=== PATIENT | male | born 1945 | race Caucasian/White ===

== ENCOUNTER → 2020-11-06 | Outpatient (CLI) | payer OTHER ==
[~2020-11-06] MED LIST: AMLODIPINE BESY10 MG PO; ASPIRIN 325MG325 MG PO; ATORVASTATIN CA20 MG PO; CIPRO250 MG PO; DUREZOL5 ML OP; IMDUR ER TAB 3030 MG PO; ISOSORBIDE MONO60 MG PO; LEVOFLOXACIN500 MG PO; LIPITOR TAB 2020 MG PO; MEDROL4 MG PO; METOPROLOL SUCC25 MG PO; NEURONTIN 400400 MG PO; NEXIUM20 MG PO; NITROGLYCERIN0.4 MG SL; NORCO 5-325 TA1 EACH PO; PREDNISOLONE ACE5 ML OP; PREDNISONE 50 M50 MG PO; PRINIVIL10 MG PO; PROAIR HFA8.5 GM INH; SYMBICORT 16010.2 GM INH; TYLENOL 500 MG500 MG PO; VENTOLIN HFA 66.7 GM INH; Voltaren Gel 1 % TOP
== END ==
LOC: KOH-I 10:35
DX: M25.511 Pain in right shoulder (principal); M25.512 Pain in left shoulder; M19.011 Primary osteoarthritis, right shoulder; R91.8 Other nonspecific abnormal finding of lung field
CPT/HCPCS: 73030

== ENCOUNTER → 2020-12-12 | Outpatient (CLI) | payer OTHER | LOC: KOH-I 12-06 10:00 | DX: Z12.2 Encounter for screening for malignant neoplasm of respiratory organs (principal); F17.210 Nicotine dependence, cigarettes, uncomplicated; J98.4 Other disorders of lung; R91.8 Other nonspecific abnormal finding of lung field | CPT/HCPCS: 71271 ==

== ENCOUNTER 2021-04-13 17:17 | Emergency (ER) | payer OTHER ==
[2021-04-13 18:16] LABS: HEMOGLOBIN 11.9 gm/dl (14.0-17.5); RED BLOOD COUNT 3.83 M/UL (4.20-5.50); WHITE BLOOD COUNT 6.1 K/UL (4.5-11.0)
== END 2021-04-14 00:48 | disposition short-term general hospital (02) ==
LOC: ER1 17:17 → CDU 21:23
PROVIDERS: Preventive Medicine Occupational Medicine
DX: R07.89 Other chest pain (principal); R79.1 Abnormal coagulation profile; I10 Essential (primary) hypertension; I25.10 Atherosclerotic heart disease of native coronary artery without angina pectoris; J44.9 Chronic obstructive pulmonary disease, unspecified; F17.210 Nicotine dependence, cigarettes, uncomplicated; Z20.822 Contact with and (suspected) exposure to COVID-19
CPT/HCPCS: 71045; 80053; 81001; 82550; 82553; 83690; 83874; 83880; 84484; 85025; 85379; 86140; 87086; 93005; 99285; Q9967; U0002

== ENCOUNTER 2021-05-17 17:48 | Emergency (ER) | payer OTHER ==
[2021-05-17 19:03] LABS: HEMOGLOBIN 9.8 gm/dl (14.0-17.5); RED BLOOD COUNT 3.15 M/UL (4.20-5.50); WHITE BLOOD COUNT 8.3 K/UL (4.5-11.0)
[2021-05-17 19:51] LABS: BUN/CREATININE RATIO 14 (0-10)
== END 2021-05-17 23:35 | disposition home or self-care (01) ==
LOC: ER1 17:48
PROVIDERS: Emergency Medicine
DX: R55 Syncope and collapse (principal); I10 Essential (primary) hypertension; J44.9 Chronic obstructive pulmonary disease, unspecified; Z79.01 Long term (current) use of anticoagulants; Z79.82 Long term (current) use of aspirin
CPT/HCPCS: 70450; 71045; 80053; 82550; 82553; 83874; 84484; 85025; 85379; 93005; 99285; J7040; Q9967

== ENCOUNTER 2021-05-29 18:37 | Emergency (ER) | payer OTHER ==
[2021-05-29 19:24] LABS: HEMOGLOBIN 7.9 gm/dl (14.0-17.5); RED BLOOD COUNT 2.54 M/UL (4.20-5.50); WHITE BLOOD COUNT 6.5 K/UL (4.5-11.0)
== END 2021-05-29 23:07 | disposition home or self-care (01) ==
LOC: ER1 18:37
PROVIDERS: Physician Assistant
DX: I25.10 Atherosclerotic heart disease of native coronary artery without angina pectoris (principal); I12.9 Hypertensive chronic kidney disease with stage 1 through stage 4 chronic kidney disease, or unspecified chronic kidney disease; N18.9 Chronic kidney disease, unspecified; D63.1 Anemia in chronic kidney disease; E78.5 Hyperlipidemia, unspecified; J44.9 Chronic obstructive pulmonary disease, unspecified; I73.9 Peripheral vascular disease, unspecified; K21.9 Gastro-esophageal reflux disease without esophagitis; G62.9 Polyneuropathy, unspecified
CPT/HCPCS: 71045; 80053; 82550; 82553; 83735; 83874; 84484; 85025; 93005; 99285

== ENCOUNTER 2021-07-04 18:16 | Inpatient (IN) | payer OTHER ==
[~2021-07-04] VITALS: Ht 167.6 cm; Wt 56.7 kg
[2021-07-04 19:10] LABS: HEMOGLOBIN 8.3 gm/dl (14.0-17.5); RED BLOOD COUNT 3.02 M/UL (4.20-5.50); WHITE BLOOD COUNT 12.8 K/UL (4.5-11.0)
[2021-07-04 19:37] LABS: BUN/CREATININE RATIO 15 (0-10)
[2021-07-05 04:22] LABS: HEMOGLOBIN 7.5 gm/dl (14.0-17.5)
[2021-07-05 04:23] LABS: RED BLOOD COUNT 2.66 M/UL (4.20-5.50); WHITE BLOOD COUNT 9.5 K/UL (4.5-11.0)
[2021-07-05 04:41] LABS: BUN/CREATININE RATIO 12 (0-10)
[2021-07-05 11:50] LABS: HEMOGLOBIN 7.8 gm/dl (14.0-17.5); RED BLOOD COUNT 2.85 M/UL (4.20-5.50); WHITE BLOOD COUNT 8.3 K/UL (4.5-11.0)
[2021-07-05 12:22] LABS: BUN/CREATININE RATIO 14 (0-10)
[2021-07-05] MEDS ORDERED: CLOPIDOGREL75 MG PO (13:04)
[2021-07-05] MEDS ORDERED: ATORVASTATIN CA40 MG PO (13:05)
[2021-07-05] MEDS ORDERED: LASIX20 MG PO (13:05)
[2021-07-05] MEDS ORDERED: RANEXA500 MG PO (13:05)
[2021-07-05] MEDS ORDERED: CILOSTAZOL50 MG PO (13:06)
[2021-07-05] MEDS ORDERED: ST. JOSEPH ASPI81 MG PO (14:44)
[2021-07-06 07:05] LABS: HEMOGLOBIN 7.1 gm/dl (14.0-17.5); RED BLOOD COUNT 2.69 M/UL (4.20-5.50); WHITE BLOOD COUNT 8.6 K/UL (4.5-11.0)
[2021-07-07 10:13] LABS: HEMOGLOBIN 8.3 gm/dl (14.0-17.5)
[2021-07-07 10:14] LABS: RED BLOOD COUNT 3.01 M/UL (4.20-5.50); WHITE BLOOD COUNT 6.4 K/UL (4.5-11.0)
[2021-07-08 09:09] LABS: HEMOGLOBIN 8.6 gm/dl (14.0-17.5); RED BLOOD COUNT 3.1 M/UL (4.20-5.50); WHITE BLOOD COUNT 7.1 K/UL (4.5-11.0)
[2021-07-09 08:03] LABS: HEMOGLOBIN 7.9 gm/dl (14.0-17.5); RED BLOOD COUNT 2.95 M/UL (4.20-5.50); WHITE BLOOD COUNT 6.6 K/UL (4.5-11.0)
[2021-07-09] MEDS ORDERED: LOPRESSOR 25 MG25 MG PO (11:24)
[2021-07-09] MEDS ORDERED: FUROSEMIDE40 MG PO (11:24)
[2021-07-09] MEDS ORDERED: NICOTINE PATCH1 EAC1 TOP (11:24)
[2021-07-09] MEDS ORDERED: FERROUS GLUCON324 M1 PO (11:24)
[2021-07-09] MEDS ORDERED: SYMBICORT 80-41 INHA INH (11:24)
[2021-07-09] MEDS ORDERED: PROTONIX 40 MG40 M1 PO (11:24)
--- NOTE | 2021-07-09 13:05 | NUR ---
PATIENT HAD A ROOM AIR SAT OF 82 AFTER AMBULATION.
== END 2021-07-09 19:58 | disposition home or self-care (01) | DRG 280 ==
LOC: ER1 18:16 → CDU 20:47 → M/S 07-05 15:49
PROVIDERS: Emergency Medicine; Internal Medicine Infectious Disease; ADMIT Internal Medicine
DX: I21.4 Non-ST elevation (NSTEMI) myocardial infarction (principal); J96.01 Acute respiratory failure with hypoxia; I50.33 Acute on chronic diastolic (congestive) heart failure; J18.9 Pneumonia, unspecified organism; I11.0 Hypertensive heart disease with heart failure; J44.9 Chronic obstructive pulmonary disease, unspecified; Z20.822 Contact with and (suspected) exposure to COVID-19; I25.10 Atherosclerotic heart disease of native coronary artery without angina pectoris; I73.9 Peripheral vascular disease, unspecified; H91.90 Unspecified hearing loss, unspecified ear; E78.5 Hyperlipidemia, unspecified; F41.9 Anxiety disorder, unspecified; D50.9 Iron deficiency anemia, unspecified; Z88.1 Allergy status to other antibiotic agents; Z88.8 Allergy status to other drugs, medicaments and biological substances; Z90.89 Acquired absence of other organs; Z98.890 Other specified postprocedural states; Z98.42 Cataract extraction status, left eye; Z98.41 Cataract extraction status, right eye; Z82.49 Family history of ischemic heart disease and other diseases of the circulatory system; Z87.891 Personal history of nicotine dependence; Z83.3 Family history of diabetes mellitus
CPT/HCPCS: 36415; 36600; 71045; 71046; 80048; 80053; 82550; 82553; 82607; 82728; 82746; 82803; 82962; 83540; 83550; 83605; 83874; 83880; 84484; 85014; 85018; 85025; 85379; 85610; 85730; 87040; 93005; 94760; 96374; 96375; 99285; J0692; J1200; J1644; J1940; J1956; J2930; J3370; J7030; J7040; Q9967; U0002

== ENCOUNTER 2021-10-25 21:27 | Emergency (ER) | payer OTHER ==
[~2021-10-25 21:27] MED LIST changes: +ATORVASTATIN CA40 MG PO; +CILOSTAZOL50 MG PO; +CLOPIDOGREL75 MG PO; +FERROUS GLUCON324 M1 PO; +FUROSEMIDE40 MG PO; +LASIX20 MG PO; +LOPRESSOR 25 MG25 MG PO; +NICOTINE PATCH1 EAC1 TOP; +PROTONIX 40 MG40 M1 PO; +RANEXA500 MG PO; +ST. JOSEPH ASPI81 MG PO; +SYMBICORT 80-41 INHA INH
[2021-10-25 22:33] LABS: HEMOGLOBIN 9.9 gm/dl (14.0-17.5); RED BLOOD COUNT 3.17 M/UL (4.20-5.50); WHITE BLOOD COUNT 2.7 K/UL (4.5-11.0)
== END 2021-10-26 02:55 | disposition home or self-care (01) ==
LOC: ER1 21:27
PROVIDERS: Preventive Medicine Occupational Medicine
DX: U07.1 COVID-19 (principal); E86.0 Dehydration; I25.10 Atherosclerotic heart disease of native coronary artery without angina pectoris
CPT/HCPCS: 70450; 80053; 81001; 82550; 82553; 83690; 83874; 83880; 84484; 85025; 85652; 86140; 87086; 93005; 99285; U0002

== ENCOUNTER 2021-11-16 02:51 | Observation (INO) | payer OTHER ==
[~2021-11-16] VITALS: Ht 165.1 cm; Wt 49.4 kg
[~2021-11-16 02:51] MED LIST changes: +AMOXICILLIN875 MG PO; +DOXYCYCLINE MO100 MG PO
[2021-11-16 03:35] LABS: HEMOGLOBIN 8.8 gm/dl (14.0-17.5); RED BLOOD COUNT 2.93 M/UL (4.20-5.50); WHITE BLOOD COUNT 6.9 K/UL (4.5-11.0)
[2021-11-16 03:44] LABS: BUN/CREATININE RATIO 20 (0-10)
[2021-11-16] MEDS ORDERED: BUMETANIDE1 MG PO (17:31)
[2021-11-16] MEDS ORDERED: CILOSTAZOL50 MG PO (17:32)
[2021-11-16] MEDS ORDERED: POTASSIUM CHLO10 ME1 PO (17:33)
[2021-11-16] MEDS ORDERED: LASIX40 MG PO (17:39)
[2021-11-16] MEDS ORDERED: ISOSORBIDE MONO30 MG PO (17:39)
[2021-11-17 06:02] LABS: RED BLOOD COUNT 2.23 M/UL (4.20-5.50); WHITE BLOOD COUNT 4.2 K/UL (4.5-11.0)
[2021-11-17 06:03] LABS: HEMOGLOBIN 6.4 gm/dl (14.0-17.5)
[2021-11-18 06:08] LABS: HEMOGLOBIN 7.8 gm/dl (14.0-17.5); RED BLOOD COUNT 2.57 M/UL (4.20-5.50); WHITE BLOOD COUNT 4.7 K/UL (4.5-11.0)
[2021-11-18] MEDS ORDERED: CEPHALEXIN500 MG PO (11:46)
== END 2021-11-18 15:40 | disposition home or self-care (01) ==
LOC: ER1 02:51 → CDU 06:22 → 3 EAST 10:48 → M/S 22:42
PROVIDERS: Family Medicine; Internal Medicine; ADMIT Internal Medicine
DX: I95.1 Orthostatic hypotension (principal); D50.9 Iron deficiency anemia, unspecified; U07.1 COVID-19; I25.10 Atherosclerotic heart disease of native coronary artery without angina pectoris; I13.0 Hypertensive heart and chronic kidney disease with heart failure and stage 1 through stage 4 chronic kidney disease, or unspecified chronic kidney disease; N18.30 Chronic kidney disease, stage 3 unspecified; I50.30 Unspecified diastolic (congestive) heart failure; J44.9 Chronic obstructive pulmonary disease, unspecified; N17.9 Acute kidney failure, unspecified; J32.1 Chronic frontal sinusitis; E78.5 Hyperlipidemia, unspecified; F17.210 Nicotine dependence, cigarettes, uncomplicated; Z79.02 Long term (current) use of antithrombotics/antiplatelets; Z79.82 Long term (current) use of aspirin; Z79.899 Other long term (current) drug therapy
CPT/HCPCS: 36415; 36600; 70450; 71045; 80048; 80053; 81001; 82550; 82553; 82607; 82728; 82746; 82803; 83540; 83550; 83605; 83735; 83874; 83880; 84100; 84484; 85025; 86850; 86900; 86901; 86920; 87086; 93005; 94640; 94664; 94760; 99285; G0378; J7030; J7050; P9016; U0002

== ENCOUNTER → 2022-06-10 | Outpatient (CLI) | payer OTHER ==
[~2022-06-10] MED LIST changes: +BUMETANIDE1 MG PO; +CEPHALEXIN500 MG PO; +ISOSORBIDE MONO30 MG PO; +LASIX40 MG PO; +POTASSIUM CHLO10 ME1 PO
== END ==
LOC: KOH-I 11:00
DX: R63.4 Abnormal weight loss (principal); J43.9 Emphysema, unspecified
CPT/HCPCS: 71250